=== PATIENT | female | born 1960 | race Caucasian/White ===

== ENCOUNTER 2020-09-22 18:33 | Inpatient (IN) | payer OTHER ==
[2020-09-22] MEDS ORDERED: DIPHENHYDRAMINE 50 MG/ML VIAL ONE (19:06)
[2020-09-22] MEDS ORDERED: METOCLOPRAMIDE 10 MG/2mL INJ ONE (19:06)
[2020-09-22] MEDS ORDERED: ONDANSETRON 4 MG/2 ML VIAL ONE (19:07)
[2020-09-22] MEDS ORDERED: NA CHLORIDE 0.9% 500 ML ONE ×2 (19:07→22:19)
[2020-09-22 19:21] LABS: Absolute Lymphocytes (CBC) 1.8 K/uL (0.7-4.9); Basophils % 0.4 % (0-1.3); Hematocrit 46.6 % (36.0-45.0); Lymphocytes % 22.9 % (15.3-44.8); MPV 7.4 fL (7.6-11.3); RBC Red Blood Cell Count 5.46 M/uL (3.86-4.86)
[2020-09-22 19:22] LABS: Protime INR 0.93
[2020-09-22 19:23] LABS: Urine Bacteria <20 /HPF (<20); Urine Coarse Granular Casts 0-5 /LPF (NONE SEEN); Urine Mucus 1+ /HPF (NONE SEEN); Urine RBC <5 /HPF (NONE SEEN)
[2020-09-22 19:23] LABS: Urine Blood TRACE (NEG); Urine Glucose 3+ (NEG); Urine Protein NEGATIVE (NEG); Urine Specific Gravity 1.025 (1.005-1.030); Urine pH 6.5 (5.0-7.0)
--- NOTE | 2020-09-22 19:39 | RAD REPORT ---
EXAM DESCRIPTION: CT - Head Brain Wo Cont - 09/22/2020 7:16 pm CLINICAL HISTORY: HEADACHE COMPARISON: No comparisons TECHNIQUE: Axial 5 mm thick images of the head were obtained without IV contrast. All CT scans are performed using dose optimization technique as appropriate and may include automated exposure control or mA/KV adjustment according to patient size. FINDINGS: No intracranial hemorrhage, mass, edema or shift of mid-line structures. No acute infarcti on changes seen. No abnormal extra-axial fluid collections. Atrophy is minimal. Ventricles are in pro portion to the volume loss. Mastoid air cells and visualized portions of the paranasal sinuses are clear. Frontal sinuses are no t pneumatized. No acute bony findings. IMPRESSION: Negative non-contrast CT head examination.
[2020-09-22 20:03] LABS: ALT/SGPT 34 U/L (12-78); AST/SGOT 33 U/L (15-37); Albumin 4.6 g/dL (3.4-5.0); Alkaline Phosphatase 62 U/L (45-117); BUN Blood Urea Nitrogen 14 mg/dL (7-18); Bicarbonate 29 mmol/L (21-32); Bilirubin Direct < 0.1 mg/dL (0-0.2); Bilirubin Total 0.4 mg/dL (0.2-1.0); Glucose Level 119 mg/dL (74-106); Lipase 169 U/L (73-393); Magnesium 2.3 mg/dL (1.8-2.4); Potassium 3.7 mmol/L (3.5-5.1); Protein, Total 8.3 g/dL (6.4-8.2); Sodium Level 140 mmol/L (136-145); Troponin (Emerg Dept Use Only) 0.04 ng/mL (0.0-0.045)
[2020-09-22 20:48] LABS: T3 Free 2.64 pg/mL (2.18-3.98); T4,Total 10.4 ug/dL (4.8-13.9); Thyroid Stimulating Hormone 2.67 uIU/mL (0.360-3.740)
--- NOTE | 2020-09-22 22:09 | ER ---
Nurse's Notes [facility] Name: Mackenzie Padron Age: 60 yrs Sex: Female : 1960 Arrival Date: 09/22/2020 Time: 18:35 Bed 6 Private MD: Diagnosis: Hypercalcemia;Headache;Nausea and vomiting Presentation: 09/22 18:36 Chief complaint: Patient states: "I started with a headache today, nausea,vomiting, and aa5 abdominal cramping and then I checked my blood pressure and it was high 189/103". Pt reports she received the 2nd dose of COVID-19 vaccine 6 days ago. 18:36 Acuity: LATRICE 3 aa5 18:36 Method Of Arrival: Ambulatory aa5 18:36 Coronavirus screen: headache, nausea, vomiting. Ebola Screen: Patient negative for aa5 fever greater than or equal to 101.5 degrees Fahrenheit, and additional compatible Ebola Virus Disease symptoms. Initial Sepsis Screen: Does the patient meet any 2 criteria? No. Patient's initial sepsis screen is negative. Does the patient have a suspected source of infection? No. Patient's initial sepsis screen is negative. Risk Assessment: Do you want to hurt yourself or someone else? Patient reports no desire to harm self or others. Onset of symptoms was September 22, 2020. Triage Assessment: 19:39 Headache History: Denies prior headaches. General: Appears comfortable. General: rv Behavior is calm, cooperative. Pain: Pain Pain began Also complains of no other associated symptoms. Historical: - Allergies: 18:53 No Known Allergies; aa5 - Home Meds: 18:53 Synjardy oral oral [Active]; Ozempic [Active]; Crestor oral oral [Active]; losartan aa5 oral oral [Active]; Hydrochlorothiazide Oral [Active]; fenofibrate oral oral [Active]; venlafaxine oral oral [Active]; Protonix Oral [Active]; - PMHx: 18:53 Hypertension; Diabetes - NIDDM; Hyperlipidemia; aa5 - PSHx: 18:53 Hysterectomy; aa5 - Immunization history:: Adult Immunizations unknown. - Social history:: Smoking status: unknown. Screenin:36 Abuse screen: Denies threats or abuse. Denies injuries from another. Nutritional rv screening: No deficits noted. Tuberculosis screening: No symptoms or risk factors identified. Fall Risk None identified. Assessment: 19:37 General: Appears comfortable, Behavior is calm, cooperative. Pain: Complains of pain in rv headache. Neuro: Level of Consciousness is awake, alert, obeys commands, Oriented to person, place, time, situation, Reports headache. Cardiovascular: Patient's skin is warm and dry. Rhythm is regular. Derm: Skin is intact. Vital Signs: 18:36 BP 170 / 87; Pulse 85; Resp 18 S; Temp 98.7(O); Pulse Ox 97% on R/A; aa5 19:36 BP 144 / 96; Pulse 76; Resp 23; Pulse Ox 96% on R/A; rv 20:00 BP 133 / 67; Pulse 74; Resp 17; Pulse Ox 97% on R/A; rv 21:00 BP 98 / 80; Pulse 73; Resp 19; Pulse Ox 97% on R/A; rv ED Course: 18:35 Patient arrived in ED. ag5 18:36 Arm band placed on Patient placed in an exam room, on a stretcher. aa5 18:39 Yuri Sullivan PA is PHCP. cp 18:39 Remigio Swartz MD is Attending Physician. cp 18:40 Cj Bach, DAE is Primary Nurse. bp 18:49 Triage completed. aa5 19:05 Inserted saline lock: 20 gauge in right antecubital area, using aseptic technique. bp Blood collected. 19:15 CT Head Brain wo Cont In Process Unspecified. EDMS 19:38 Patient has correct armband on for positive identification. fibre cement moulder on. Pulse rv ox on. NIBP on. 19:38 No provider procedures requiring assistance completed. rv 20:05 Notified ED physician of a critical lab result(s). Calcium 13.6. tl1 22:07 Oscar Tellez MD is Hospitalizing Provider. cp 09/23 00:32 IV is patent, with fluids infusing freely, Patient admitted, IV remains in place. rv Administered Medications: 09/22 19:05 Drug: NS 0.9% 500 ml Route: IV; Rate: bolus; Site: right antecubital; bp 09/23 00:33 Follow up: IV Status: Completed infusion; IV Intake: 500ml rv 09/22 19:05 Drug: Reglan 10 mg Route: IVP; Site: right antecubital; bp 09/23 00:32 Follow up: Response: No adverse reaction rv 09/22 19:05 Drug: Benadryl 12.5 mg Route: IVP; Site: right antecubital; bp 09/23 00:32 Follow up: Response: No adverse reaction rv 09/22 19:05 Drug: Zofran (Ondansetron) 4 mg Route: IVP; Site: right antecubital; bp 02 00:32 Follow up: Response: No adverse reaction rv 09/22 22:09 Drug: NS 0.9% 1000 ml Route: IV; Rate: 1 bolus; Site: right antecubital; rv 23:19 Follow up: IV Status: Completed infusion; IV Intake: 1000ml rv 22:10 Drug: NS 0.9% 500 ml Route: IV; Rate: bolus; Site: right antecubital; rv 23:19 Follow up: IV Status: Completed infusion; IV Intake: 1000ml rv 23:19 Drug: Lasix 40 mg Route: IVP; Site: right antecubital; rv 09/23 00:32 Follow up: Response: No adverse reaction rv 09/22 23:19 Drug: Tylenol 1000 mg Route: PO; rr5 02 00:32 Follow up: Response: No adverse reaction rv Intake: 09/22 23:19 IV: 1000ml; Total: 1000ml. rv 23:19 IV: 1000ml; Total: 2000ml. rv 09/23 00:33 IV: 500ml; Total: 2500ml. rv Outcome: 09/22 22:08 Decision to Hospitalize by Provider. cp 09/23 00:31 Admitted to ER Hold. Please see [facility] for further documentation. rv Condition: good Instructed on the need for admit. 15:23 Patient left the ED. jl7 Signatures: Dispatcher [employer] EDMS Rosalee Aguilar, RN RN aa5 Nanette Burt RN RN tl1 Yuri Sullivan PA PA cp Zac Alcantara RN RN jl7 Cj Bach RN RN bp Froilan Mayo RN RN rv Joseph Poe, RN RN rr5 Amy Yu ag5
--- NOTE | 2020-09-22 22:09 | EDPHYS ---
Physician Documentation [facility] Name: Mackenzie Padron Age: 60 yrs Sex: Female : 1960 Arrival Date: 09/22/2020 Time: 18:35 Bed 6 Private MD: ED Physician Remigio Swartz HPI: 09/22 19:00 This 60 yrs old Female presents to ER via Ambulatory with complaints of High cp Blood Pressure, Headache, Nausea/Vomiting, Abdominal Pain. 19:00 The patient complains of pain to the top of head and forehead. cp 19:00 The patient describes the headache as aching. cp 19:00 Onset: The symptoms/episode began/occurred this morning, upon awakening. cp 19:00 The patient has elevated blood pressure and discovered this at home. Severity of cp symptoms: At its worst the blood pressure was 189 mm Hg. 19:00 Associated signs and symptoms: Pertinent positives: nausea, vomiting, Pertinent cp negatives: chest pain, visual changes. Historical: - Allergies: 18:53 No Known Allergies; aa5 - Home Meds: 18:53 Synjardy oral oral [Active]; Ozempic [Active]; Crestor oral oral [Active]; losartan aa5 oral oral [Active]; Hydrochlorothiazide Oral [Active]; fenofibrate oral oral [Active]; venlafaxine oral oral [Active]; Protonix Oral [Active]; - PMHx: 18:53 Hypertension; Diabetes - NIDDM; Hyperlipidemia; aa5 - PSHx: 18:53 Hysterectomy; aa5 - Immunization history:: Adult Immunizations unknown. - Social history:: Smoking status: unknown. ROS: 19:05 Constitutional: Negative for body aches, chills, fever, poor PO intake. cp 19:05 Eyes: Negative for injury, pain, redness, and discharge. cp 19:05 ENT: Negative for ear pain, sore throat, difficulty swallowing, difficulty handling secretions. 19:05 Cardiovascular: Negative for chest pain, edema, palpitations. 19:05 Respiratory: Negative for cough, shortness of breath, wheezing. 19:05 Abdomen/GI: Positive for nausea and vomiting, Negative for abdominal pain, constipation, anorexia, black/tarry stool, rectal bleeding. 19:05 Back: Negative for radiated pain. 19:05 : Negative for urinary symptoms. 19:05 Neuro: Positive for headache, Negative for altered mental status, syncope, weakness. 19:05 All other systems are negative. Exam: 19:07 ECG was reviewed by the Attending Physician. cp 19:10 Constitutional: The patient appears in no acute distress, alert, awake, comfortable, cp non-diaphoretic, non-toxic, well developed, well nourished. 19:10 Head/Face: Normocephalic, atraumatic. cp 19:10 Eyes: Periorbital structures: appear normal, Pupils: equal, round, and reactive to light and accomodation, Extraocular movements: intact throughout, Conjunctiva: normal, no exudate, no injection, Sclera: no appreciated abnormality, Lids and lashes: appear normal, bilaterally. 19:10 ENT: External ear(s): are unremarkable, Ear canal(s): are normal, clear, TM's: dullness, bilaterally, Nose: is normal, Mouth: Lips: moist, Oral mucosa: moist, Posterior pharynx: is normal, airway is patent, no erythema, no exudate. 19:10 Neck: ROM/movement: is normal, is supple, without pain, no range of motions limitations. 19:10 Chest/axilla: Inspection: normal, Palpation: is normal, no crepitus, no tenderness. 19:10 Cardiovascular: Rate: normal, Rhythm: regular, Edema: is not appreciated, JVD: is not appreciated. 19:10 Respiratory: the patient does not display signs of respiratory distress, Respirations: normal, no use of accessory muscles, no retractions, labored breathing, is not present, Breath sounds: are clear throughout, no decreased breath sounds, no stridor, no wheezing. 19:10 Abdomen/GI: Inspection: abdomen appears normal, Palpation: abdomen is soft and non-tender, in all quadrants. 19:10 Back: pain, is absent, ROM is normal. 19:10 Neuro: Orientation: to person, place \T\ time. Mentation: is normal, Cerebellar function: is grossly normal, Motor: moves all fours, strength is normal, Sensation: is normal. Vital Signs: 18:36 BP 170 / 87; Pulse 85; Resp 18 S; Temp 98.7(O); Pulse Ox 97% on R/A; aa5 19:36 BP 144 / 96; Pulse 76; Resp 23; Pulse Ox 96% on R/A; rv 20:00 BP 133 / 67; Pulse 74; Resp 17; Pulse Ox 97% on R/A; rv 21:00 BP 98 / 80; Pulse 73; Resp 19; Pulse Ox 97% on R/A; rv MDM: 18:42 Patient medically screened. cp 21:59 Physician consultation: Usha Ricci MD was called at 21:59, was contacted at 21:59, cp regarding consult, patient's condition, wants patient admitted to hospitalist. 22:00 Data reviewed: vital signs, nurses notes, lab test result(s), EKG, radiologic studies, cp CT scan, I have discussed the patient's presentation/case with the attending Emergency Department Physician; and as a result, I will admit patient. 22:00 Test interpretation: by ED physician or midlevel provider: ECG. Counseling: I had a cp detailed discussion with the patient and/or guardian regarding: the historical points, exam findings, and any diagnostic results supporting the discharge/admit diagnosis, lab results, radiology results, the need for further work-up and treatment in the hospital. 09/22 18:48 Order name: Basic Metabolic Panel; Complete Time: 20:09 cp 09/22 18:48 Order name: CBC with Diff; Complete Time: 19:48 cp 09/22 19:48 Interpretation: Normal except: RBC 5.46; HGB 15.2; HCT 46.6; MPV 7.4. cp 09/22 18:48 Order name: LFT's; Complete Time: 20:09 cp 09/22 18:48 Order name: Magnesium; Complete Time: 20:09 cp 09/22 18:48 Order name: PT-INR; Complete Time: 19:48 cp 09/22 18:48 Order name: Troponin (emerg Dept Use Only); Complete Time: 20:09 cp 09/22 18:48 Order name: Lipase; Complete Time: 20:09 cp 09/22 18:48 Order name: Urine Microscopic Only; Complete Time: 19:48 cp 09/22 19:13 Order name: Urine Dipstick--Ancillary (enter results) tt3 09/22 20:09 Order name: Pth,Intact; Complete Time: 21:39 cp 09/22 20:13 Order name: TSH; Complete Time: 21:39 cp 02/ 20:13 Order name: T3 Free; Complete Time: 21:39 cp 09/22 20:13 Order name: T4 Free; Complete Time: 21:39 cp 09/22 20:13 Order name: T4,Total; Complete Time: 21:39 cp 09/22 18:48 Order name: CT Head Brain wo Cont; Complete Time: 19:48 cp 09/22 19:48 Interpretation: Report reviewed. 09/22 23:23 Order name: SARS-COV-2 RT PCR EDAZ 09/22 23:54 Order name: CBC with Automated Diff EDMS 09/22 23:54 Order name: CBC with Automated Diff EDMS 09/22 23:54 Order name: Comprehensive Metabolic Panel EDAZ 09/22 23:54 Order name: Comprehensive Metabolic Panel EDAZ 09/22 23:55 Order name: Vitamin D, 25 (OH), TOTAL EDAZ 09/22 23:55 Order name: Vitamin D,1,25 Dihydroxy EDAZ 09/23 08:08 Order name: Glucose, Ancillary Testing EDAZ 09/23 13:52 Order name: Glucose, Ancillary Testing EDAZ 09/22 18:48 Order name: EKG; Complete Time: 18:49 cp 09/22 18:48 Order name: Cardiac monitoring; Complete Time: 18:55 cp 09/22 18:48 Order name: EKG - Nurse/Tech; Complete Time: 18:55 cp 09/22 18:48 Order name: IV Saline Lock; Complete Time: 19:08 cp 09/22 18:48 Order name: Labs collected and sent; Complete Time: 19:07 09/22 18:48 Order name: O2 Per Protocol; Complete Time: 19:07 cp 09/22 18:48 Order name: O2 Sat Monitoring; Complete Time: 19:07 cp 09/22 18:48 Order name: Urine Dipstick-Ancillary (obtain specimen); Complete Time: 19:15 cp 09/22 23:54 Order name: CONS Pharmacy Consult EDAZ 09/22 23:54 Order name: CONS Physician Consult EDAZ 09/22 23:54 Order name: Regular EDMS EC:07 Rate is 78 beats/min. Rhythm is regular. WA interval is normal. QRS interval is cp prolonged at 104 msec. QT interval is normal. T waves are Flattened in lead aVL. Interpreted by me. Reviewed by me. Administered Medications: 19:05 Drug: NS 0.9% 500 ml Route: IV; Rate: bolus; Site: right antecubital; bp 09/23 00:33 Follow up: IV Status: Completed infusion; IV Intake: 500ml rv 09/22 19:05 Drug: Reglan 10 mg Route: IVP; Site: right antecubital; bp 09/23 00:32 Follow up: Response: No adverse reaction rv 09/22 19:05 Drug: Benadryl 12.5 mg Route: IVP; Site: right antecubital; bp 09/23 00:32 Follow up: Response: No adverse reaction rv 09/22 19:05 Drug: Zofran (Ondansetron) 4 mg Route: IVP; Site: right antecubital; bp 09/23 00:32 Follow up: Response: No adverse reaction rv 09/22 22:09 Drug: NS 0.9% 1000 ml Route: IV; Rate: 1 bolus; Site: right antecubital; rv 23:19 Follow up: IV Status: Completed infusion; IV Intake: 1000ml rv 22:10 Drug: NS 0.9% 500 ml Route: IV; Rate: bolus; Site: right antecubital; rv 23:19 Follow up: IV Status: Completed infusion; IV Intake: 1000ml rv 23:19 Drug: Lasix 40 mg Route: IVP; Site: right antecubital; rv 09/23 00:32 Follow up: Response: No adverse reaction rv 09/22 23:19 Drug: Tylenol 1000 mg Route: PO; rr5 02 00:32 Follow up: Response: No adverse reaction rv Disposition: 17:17 Co-signature as Attending Physician, Remigio Swartz MD I agree with the assessment and kdr plan of care. Disposition: 09/22/20 22:08 Hospitalization ordered by Oscar Tellez for Observation. Preliminary diagnosis are Hypercalcemia, Headache, Nausea and vomiting. - Bed requested for [facility] ER HOLD. - Status is Observation. jl7 - Condition is Stable. - Problem is new. - Symptoms have improved. Signatures: Dispatcher [employer] Alix Thomas RN RN dw Rittger, Kevin, MD MD kdr Calderon, Audri, RN RN aa5 Yuri Sullivan PA PA cp Leal, Jahala RN RN jl7 Cj Bach, RN RN bp Froilan Mayo, RN RN rv Joseph Poe, RN RN rr5 Corrections: (The following items were deleted from the chart) 09/22 22:37 22:09 CORONAVIRUS+ ordered. EDMS EDMS 09/23 00:02 09/22 22:08 Hospitalization Ordered by Oscar Tellez MD for Observation. Preliminary dw diagnosis is Hypercalcemia; Headache; Nausea and vomiting. Bed requested for Telemetry/MedSurg (observation). Status is Observation. Condition is Stable. Problem is new. Symptoms have improved. cp 09/23 10:57 00:02 09/22/2020 22:08 Hospitalization Ordered by Oscar Tellez MD for Observation. dw Preliminary diagnosis is Hypercalcemia; Headache; Nausea and vomiting. Bed requested for [facility] ER HOLD. Status is Observation. Condition is Stable. Problem is new. Symptoms have improved. dw 12:33 10:57 09/22/2020 22:08 Hospitalization Ordered by Oscar Tellez MD for Observation. aa5 Preliminary diagnosis is Hypercalcemia; Headache; Nausea and vomiting. Bed requested for Telemetry/MedSurg (observation). Status is Observation. Condition is Stable. Problem is new. Symptoms have improved. dw 15:23 12:33 09/22/2020 22:08 Hospitalization Ordered by Oscar Tellez MD for Observation. jl7 Preliminary diagnosis is Hypercalcemia; Headache; Nausea and vomiting. Bed requested for [facility] ER HOLD. Status is Observation. Condition is Stable. Problem is new. Symptoms have improved. aa5
[2020-09-22] MEDS ORDERED: NA CHLORIDE 0.9% 1,000 ML ONE (22:19)
[2020-09-22] MEDS ORDERED: FUROSEMIDE 40 MG/4 ML VIAL ONE (22:19)
[2020-09-22] MEDS ORDERED: ACETAMINOPHEN 500 MG TAB ONE (23:32)
--- NOTE | 2020-09-22 23:44 | P.HP ---
Certification for Inpatient Patient admitted to: Observation With expected LOS: <2 Midnights Patient will require the following post-hospital care: None Practitioner: I am a practitioner with admitting privileges, knowledge of patient current condition, hospital course, and medical plan of care. Services: Services provided to patient in accordance with Admission requirements found in Title 42 Section 412.3 of the Code of Federal Regulations Patient History Date of Service: 09/22/20 Reason for admission: headaches History of Present Illness: 60 yr old female with HTN , HLD, DM, Endometrial cancer recent diagnosis of osteopenia and started on Vit D by her PCP 1 month ago and patient started on OTC calcium supplement -unsure name , admitted for new onset headaches this am , frontal , non radiating , non-associated with any nausea or vomiting , presented and noted with mild elevate BP in the 170s with serum calcium elevated at 13 . She denies any constipation , no hx of breast cancer or renal disease . No regular high milk or antacid intake Home medications list reviewed: No - Past Medical/Surgical History Has patient received pneumonia vaccine in the past: No Diabetic: No -: HTN, hld, dm -: HSYTERECTOMY , Endometrial cancer - Social History Smoking Status: Never smoker Smoking therapy provided: No Place of Residence: Home Review of Systems 10-point ROS is otherwise unremarkable Physical Examination - Physical Exam General: Alert, In no apparent distress, Oriented x3, Cooperative HEENT: Atraumatic, Normocephalic, PERRLA, Mucous membr. moist/pink Neck: Supple, 2+ carotid pulse no bruit, JVD not distended Respiratory: Clear to auscultation bilaterally, Normal air movement Cardiovascular: No edema, Normal pulses, Regular rate/rhythm, Normal S1 S2 Gastrointestinal: Normal bowel sounds, Soft and benign, Non-distended Musculoskeletal: No clubbing, No swelling, No contractures Neurological: Normal gait, Normal speech, Normal strength at 5/5 x4 extr, Cranial nerves 3-12 intact - Studies Laboratory Data (last 24 hrs) 09/22/20 19:05: PT 10.7, INR 0.93 09/22/20 19:05: WBC 7.90, Hgb 15.2 H, Hct 46.6 H, Plt Count 295 09/22/20 19:05: Sodium 140, Potassium 3.7, BUN 14, Creatinine 0.78, Glucose 119 H, Magnesium 2.3, Total Bilirubin 0.4, AST 33, ALT 34, Alkaline Phosphatase 62, Lipase 169 Imagings Data: head ct - neg Assessment and Plan - Problems (Diagnosis) (1) Hypercalcemia Current Visit: Yes Status: Acute (2) HTN (hypertension) Current Visit: Yes Status: Acute (3) Diabetes Current Visit: Yes Status: Acute - Plan # Hypercalcemia - likely due to Vit D toxicity In setting of Hctz use and OTC calcium use -obtain 25 -OH vit D level -hold calcium tabs -start gentle IVF with NS and dose lasix to aidm calcium excretion -will hold off bisphosphonate now since doubt malignancy -may need obtain PTH related peptide - BMP q12 -Hold HCTZ # HTN -add norvasc , prn hydralazine for now - Hold Hctz # DM -insulin sliding , resume home meds # Full code # DVT prop - sc heparin - Advance Directives Does patient have a Living Will: No Does patient have a Durable POA for Healthcare: No Physician Review: Patient Assessed, Agree with Above Assessment and Plan Time Spent Managing Pts Care (In Minutes): 65
[2020-09-22] MEDS ORDERED: NA CHLORIDE 0.9% 1,000 ML IV SCH (23:45)
[2020-09-22] MEDS ORDERED: ALBUTEROL 2.5 MG/3 ML NEB SOL NEB PRN (23:50)
[2020-09-22] MEDS ORDERED: MORPHINE 2 MG/ML SYR IV PRN (23:50)
[2020-09-22] MEDS ORDERED: ACETAMINOPHEN 500 MG TAB PO PRN (23:50)
[2020-09-22] MEDS ORDERED: ONDANSETRON 4 MG/2 ML VIAL IV PRN (23:50)
[2020-09-22] MEDS ORDERED: FUROSEMIDE 40 MG/4 ML VIAL IV ONE (23:53)
[2020-09-22] MEDS ORDERED: PAMIDRONATE DISOD 30 MG VIAL IV ONE (23:54)
[2020-09-23] MEDS ORDERED: PAMIDRONATE IV ONE (01:00)
[2020-09-23] MEDS ORDERED: NACHLORIDE 0.45% IV ONE (01:00)
[2020-09-23 01:31] VITALS: O2SAT 96; BMI 28.3
[2020-09-23 04:58] LABS: Absolute Lymphocytes (CBC) 2.1 K/uL (0.7-4.9); Basophils % 0.3 % (0-1.3); Hematocrit 37.9 % (36.0-45.0); MPV 7.2 fL (7.6-11.3); RBC Red Blood Cell Count 4.46 M/uL (3.86-4.86)
[2020-09-23 05:14] LABS: Albumin 3.4 g/dL (3.4-5.0); Bilirubin Total 0.3 mg/dL (0.2-1.0); Potassium 3.2 mmol/L (3.5-5.1); Protein, Total 6.1 g/dL (6.4-8.2)
[2020-09-23] MEDS ORDERED: NA CHLORIDE 0.9% 1,000 ML ONE (07:13)
[2020-09-23] MEDS: INSULIN -REGULAR HUMAN 50 UNIT/0.5 ML ML SQ SCH ×2 (07:30→11:30)
[2020-09-23] MEDS ORDERED: PAMIDRONATE 90 MG in NA CHLORIDE 0.9% 500 ML IV ONE (08:00)
--- NOTE | 2020-09-23 12:57 | P.CNS ---
Date of Consult: 09/23/20 Reason for Consult: Hypercalcemia Chief Complaint: headaches History of Present Illness: Subjective A 60 yr old woman with PMHx HTN on HCTZ , HLD, DM, Hx of Endometrial cancer F/u with MD wilde, OA on Fosamax and ViT D pt presented with headache , nausea and vomiting in ER calcium level was 13.00 Review of Systems: Head and Neck: No red eye. No ear pain. GI: nausea, and vomiting resolved now : No polyuria, no dysuria, no hematuria. Social Work Lecturer: Not applicable. Respiratory: No shortness of breath. Cardiovascular: No chest pain. Endocrine: No polydipsia. Skin: No rash. Neuro: Has neuropathy. Musculoskeletal: No back pain . Physical exam general: AAOX3, NAD Neck; Supple, No elevated JVD hear: RRR, normal S1,2 no murmur or rub Chest: CTAB, no rales or wheezes Abdomen: Soft , Nt Extremities no edema A/P Hypercalcemia Pt is unaware of any high calcium level in the past possibly due to dehydration +/- Vit D and calcium +/- HCTZ PTH suppressed resolved now as per Pt she had colonoscopy and mammograms done last year , she will need to follow with PCP and oncologist for malignancy screening will stop HCTZ and Vit D f/u with nephrology clinic in 2-3 wks HTN BP controlled now DM resume home meds Hypokalemia will start on Po supplementation cont losartan total time spent 45min Allergies No Known Allergies Allergy (Unverified 09/23/20 01:32) Home Medications: Empagliflozin/Metformin HCl [Synjardy 12.5-1,000 mg Tablet] 12.5 - 1,000 mg PO DAILY 09/23/20 Fenofibrate 160 mg PO DAILY 09/23/20 Losartan Potassium 100 mg PO DAILY 09/23/20 Pantoprazole Sodium [Protonix] 40 mg PO DAILY 09/23/20 Rosuvastatin Calcium [Crestor] 10 mg PO DAILY 09/23/20 Semaglutide [Ozempic] 1 mg SQ EVERY 7TH DAY 09/23/20 Venlafaxine HCl [Venlafaxine HCl ER] 75 mg PO DAILY 09/23/20 hydroCHLOROthiazide [Hydrochlorothiazide] 12.5 mg PO DAILY 09/23/20 - Past Medical/Surgical History Diabetic: No -: HTN, hld, dm -: HSYTERECTOMY , Endometrial cancer - Social History Place of Residence: Home Physical Examination Temp Pulse Resp BP Pulse Ox 98.5 F 78 15 109/71 95 09/23/20 08:00 09/23/20 08:00 09/23/20 08:00 09/23/20 08:00 09/23/20 08:00 Laboratory Data (last 24 hrs) 09/22/20 19:05: PT 10.7, INR 0.93 09/22/20 19:05: WBC 7.90, Hgb 15.2 H, Hct 46.6 H, Plt Count 295 09/22/20 19:05: Sodium 140, Potassium 3.7, BUN 14, Creatinine 0.78, Glucose 119 H, Magnesium 2.3, Total Bilirubin 0.4, AST 33, ALT 34, Alkaline Phosphatase 62, Lipase 169
[2020-09-23 13:38] VITALS: BP 113/78; TEMP 97.9
--- NOTE | 2020-09-23 14:46 | P.DS ---
Discharge Date: 09/23/20 Disposition: ROUTINE DISCHARGE Discharge Condition: GOOD Reason for Admission: headaches Consultations: Nephrology Brief History of Present Illness: 60 yr old female with HTN , HLD, DM, Endometrial cancer recent diagnosis of osteopenia and started on Vit D by her PCP 1 month ago and patient started on OTC calcium supplement -unsure name , admitted for new onset headaches this am , frontal , non radiating , non-associated with any nausea or vomiting , presented and noted with mild elevate BP in the 170s with serum calcium elevated at 13 . She denies any constipation , no hx of breast cancer or renal disease . No regular high milk or antacid intake Hospital Course: Patient's headache resolved. Patient clinically is doing well with no new complaints. Patient will need to follow with Neurology as an outpatient if the headache is recurrent. Nausea vomiting has resolved. At this time, patient is stable for discharge home with outpatient follow-up. Vital Signs/Physical Exam: Temp Pulse Resp BP Pulse Ox 97.9 F 80 16 113/78 97 09/23/20 12:00 09/23/20 12:00 09/23/20 12:00 09/23/20 12:00 09/23/20 12:00 General: Alert, In no apparent distress, Oriented x3 Laboratory Data at Discharge: WBC 6.20 K/uL (4.3-10.9) D 09/23/20 04:50 Hgb 12.6 g/dL (12.0-15.0) D 09/23/20 04:50 Hct 37.9 % (36.0-45.0) D 09/23/20 04:50 Plt Count 228 K/uL (152-406) D 09/23/20 04:50 PT 10.7 SECONDS (9.5-12.5) 09/22/20 19:05 INR 0.93 09/22/20 19:05 Sodium 145 mmol/L (136-145) 09/23/20 04:50 Potassium 3.2 mmol/L (3.5-5.1) L 09/23/20 04:50 BUN 12 mg/dL (7-18) 09/23/20 04:50 Creatinine 0.88 mg/dL (0.55-1.3) 09/23/20 04:50 Glucose 93 mg/dL (74-106) 09/23/20 04:50 Magnesium 2.3 mg/dL (1.8-2.4) 09/22/20 19:05 Total Bilirubin 0.3 mg/dL (0.2-1.0) 09/23/20 04:50 AST 22 U/L (15-37) 09/23/20 04:50 ALT 23 U/L (12-78) 09/23/20 04:50 Alkaline Phosphatase 44 U/L (45-117) L 09/23/20 04:50 Lipase 169 U/L (73-393) 09/22/20 19:05 Home Medications: Empagliflozin/Metformin HCl [Synjardy 12.5-1,000 mg Tablet] 12.5 - 1,000 mg PO DAILY 09/23/20 Fenofibrate 160 mg PO DAILY 09/23/20 Furosemide [Lasix] 20 mg PO DAILY #30 tab 09/23/20 Losartan Potassium 100 mg PO DAILY 09/23/20 Pantoprazole Sodium [Protonix] 40 mg PO DAILY 09/23/20 Potassium Chloride [K-Dur] 10 meq PO DAILY #30 tab.er.prt 09/23/20 Rosuvastatin Calcium [Crestor] 10 mg PO DAILY 09/23/20 Semaglutide [Ozempic] 1 mg SQ EVERY 7TH DAY 09/23/20 Venlafaxine HCl [Venlafaxine HCl ER] 75 mg PO DAILY 09/23/20 New Medications: Potassium Chloride [K-Dur] 10 meq PO DAILY #30 tab.er.prt Furosemide [Lasix] 20 mg PO DAILY #30 tab Physician Discharge Instructions: OK TO DC IV AND DC HOME FOLLOW-UP WITH PRIMARY CARE PROVIDER IN 1-2 WEEKS FOLLOW-UP WITH Nephrology, Dr. Sellers, IN 1-2 WEEKS RETURN TO THE ER IF symptoms worsens CALL or TEXT DR. HESS AT [phone] IF ANY QUESTIONS REGARDING HOSPITAL STAY. PLEASE CALL THE FLOOR AT [phone] IF ANY MEDICATION OR NURSING QUESTIONS. Diet: ADA Activity: Fall precautions Followup: NONE,NONE [Primary Care Provider] - Time spent managing pt's care (in minutes): 35
--- NOTE | 2020-09-25 07:58 | EKG ---
Test Date: 2020-09-22 Test Time: 19:00:15 Supervisor Receiving And Processing: CHRIST MEASUREMENT RESULTS: Intervals: Rate: 78 [place]: 148 QRSD: 104 QT: 382 QTc: 435 [place]: P: 51 [place]: 148 QRS: -57 T: 67 INTERPRETIVE STATEMENTS: Normal sinus rhythm Left axis deviation Incomplete right bundle branch block Abnormal ECG Compared to ECG 07/22/2009 21:05:10 Left-axis deviation now present Incomplete right bundle-branch block now present Electronically Signed On 09-25-20 07:53:52 RECEIPT AND REPORT CLERK by Felipe Schafer
[2020-09-27 14:55] LABS: Vitamin D 1,25-Dihydroxy Total 19 pg/mL (18-72); Vitamin D,1,25-OH2, D2 <8 pg/mL
== END 2020-09-23 15:22 | disposition home or self-care (01) | DRG 641 ==
LOC: ER 18:33 → ERHOLD 23:51
PROVIDERS: ADMIT Hospitalist; ATTEND Hospitalist
DX: E83.52 Hypercalcemia (principal); E87.6 Hypokalemia; E78.5 Hyperlipidemia, unspecified; E11.40 Type 2 diabetes mellitus with diabetic neuropathy, unspecified; I10 Essential (primary) hypertension; Z79.899 Other long term (current) drug therapy; Z90.710 Acquired absence of both cervix and uterus; Z85.89 Personal history of malignant neoplasm of other organs and systems; Z20.822 Contact with and (suspected) exposure to COVID-19
CPT/HCPCS: 36415; 70450; 80048; 80053; 80076; 81003; 81015; 82306; 82652; 82947; 83690; 83735; 83970; 84436; 84439; 84443; 84481; 84484; 85025; 85610; 93005; 96361; 96374; 96375; 99285; J1200; J1940; J2405; J2430; J2765; J7030; J7040; U0003